=== PATIENT | female | born 1980 | race Caucasian/White ===

== ENCOUNTER 2016-07-08 15:00 | Emergency (ER) | payer OTHER ==
[~2016-07-08] VITALS: Ht 157.5 cm; Wt 52.2 kg
[2016-07-08 15:08] VITALS: BP 161/106; PULSE 101; RESP 18; TEMP 98.3; O2SAT 97
--- NOTE | 2016-07-08 15:18 | NUR ---
PATIENT TO ER BED 3.PATIENT SAID SEVERE PAIN TO LEFT CHEST RADIATINGTO LEFT SHOULDER AND BACK STARTED 3 DAYS AGO AND PAIN WAS ALLEVIATED BY THE PAIN MEDS THAT SHE TOOK.PER PATIENT IT GOT EVEN WORSE TODAY STATED "IT REALLY HURTS WHEN I MOVE AND I COULD NOT TURN ON MY LEFT SIDE".PATIENT'S PAIN IS BETTER WHEN SHE LIES ON HER RIGHT SIDE.NO REDNESS;NO SWELLING;NO BUMP;NO INJURY TO AREAS WITH PAIN.ABLE TO MOVE LEFT ARM BUT UNABLE TO CARRY ANYTHING WITH IT
[2016-07-08] MEDS ORDERED: LORazepam 2 MG/ML VIAL IVP ONE ×2 (15:30→16:15)
[2016-07-08] MEDS ORDERED: NACL 0.9% 500 ML IV ONE (15:30)
--- NOTE | 2016-07-08 15:30 | NUR ---
ER at bedside examining patient.
[2016-07-08 15:41] LABS: LYMPHOCYTES # (AUTO) 1.5 K/uL (1.0-5.5); MEAN CORPUSCULAR HEMOGLOBIN 30 pg (27-31); MEAN CORPUSCULAR HGB CONC 33 % (32-36); RED BLOOD CELL COUNT(AUTO) 4.07 MIL/uL (4.2-6.2)
[2016-07-08 15:51] LABS: BASOPHILS % (AUTO) 0.4 % (0.0-2.0); EOSINOPHILS % (AUTO) 0.2 % (0.0-4.0); HEMATOCRIT 36.6 % (36-48); HEMOGLOBIN 12.2 g/dL (12.0-16.0); MEAN CORPUSCULAR VOLUME 90 fL (79.0-98.0); MONOCYTES # (AUTO) 0.5 K/uL (0.0-1.0); MONOCYTES % (AUTO) 4.7 % (1.7-9.3); NEUTROPHILS # (AUTO) 8.1 K/uL (1.8-7.7); NEUTROPHILS % (AUTO) 79.7 % (40.0-70.0); PLATELET COUNT (AUTO) 281 K/uL (130-430); RED CELL DISTRIBUTION WIDTH 12.2 % (9.0-15.0); WHITE BLOOD COUNT (AUTO) 10.1 K/uL (4.8-10.8)
[2016-07-08 15:57] LABS: CALCIUM 9.3 mg/dL (8.4-11.0); CREATININE 0.76 mg/dL (0.55-1.30); POTASSIUM 4.5 mmol/L (3.5-5.1)
[2016-07-08 16:08] LABS: ALBUMIN 4.3 g/dL (3.4-4.8); TOTAL BILIRUBIN 0.3 mg/dL (0.0-1.0); TOTAL PROTEIN, SERUM 7.6 g/dL (6.4-8.3)
[2016-07-08] MEDS ORDERED: LORazepam 2 MG/ML VIAL (FOR ER USE) IVP ONE (16:15)
--- NOTE | 2016-07-08 16:15 | NUR ---
Assumed care.Pt agreed to be medicated for anxiety.
[2016-07-08] MEDS ORDERED: IBUPROFEN 800 MG TABLET PO ONE (16:30)
--- NOTE | 2016-07-08 16:35 | NUR ---
Pt medicated tolerated well. Pt appears to be less anxious. Continuing to monitor.
[2016-07-08 17:04] LABS: BILIRUBIN,URINE NEGATIVE (NEGATIVE); BLOOD, URINE NEGATIVE (NEGATIVE); COLOR,URINE YELLOW (YELLOW); GLUCOSE,URINE NEGATIVE (NEGATIVE); KETONES,URINE NEGATIVE (NEGATIVE); LEUKOCYTE ESTERASE ,URINE 3+ (NEGATIVE); NITRITE, URINE NEGATIVE (NEGATIVE); PROTEIN URINE NEGATIVE (NEGATIVE); UROBILINOGEN,URINE 0.2 (0.2-1.0)
[2016-07-08 17:11] LABS: CLARITY/URINE SLIGHTLY HAZY (CLEAR)
[2016-07-08 17:12] LABS: BARBITURATE, URINE NEGATIVE (NEG <=200); BENZODIAZEPINE, URINE NEGATIVE (NEG <=150); CANNABINOID, URINE NEGATIVE (NEG <=50); COCAINE, URINE NEGATIVE (NEG <=150); METHAMPHETAMINES SCREEN,URINE NEGATIVE (NEG <=500); OPIATE, URINE POSITIVE (NEG <=100); PHENCYCLIDINE SCREEN,URINE NEGATIVE (NEG <=25); UR TRICYCLIC ANTIDEPRESSANTS NEGATIVE (NEG <=300); URINE AMPHETAMINE NEGATIVE (NEG <=500); URINE METHADONE NEGATIVE (NEG <=200); URINE OXYCODONE SCREEN POSITIVE (NEG <=100); URINE PROPOXYPHENE SCREEN NEGATIVE (NEG <=300)
[2016-07-08 17:13] LABS: RBC,URINE 0-3 /HPF (0-3)
[2016-07-08 17:14] LABS: BACTERIA,URINE MODERATE /HPF (None Seen); MUCUS,URINE None Seen /LPF (None Seen)
[2016-07-08] MEDS ORDERED: HYDROcodone/ACETAMIN 7.5-325 MG TAB PO ONE (17:45)
--- NOTE | 2016-07-08 18:57 | NUR ---
Patient given written and verbal discharge instructions and verbalizes understanding. ER MD discussed with patient the results and treatment provided. Patient in stable condition. ID arm band removed. Patient educated on pain management and to follow up with PMD. Pain Scale 2/10 tolerable for pt. Opportunity for questions provided and answered.
[2016-07-08 19:16] VITALS: BP 142/98; PULSE 98; RESP 18; TEMP 98.3; O2SAT 97
== END 2016-07-08 19:16 | disposition home or self-care (01) ==
LOC: SED 15:00
DX: F41.9 Anxiety disorder, unspecified (principal); N39.0 Urinary tract infection, site not specified
CPT/HCPCS: 36415; 71010; 80053; 80307; 81000; 81025; 84484; 85025; 87086; 93005; 96361; 96374; 99285; J2060; J7040